=== PATIENT | male | born 1990 | race African-American/Black ===

== ENCOUNTER 2018-07-21 10:11 | Emergency (ER) | payer MEDICAID, OTHER ==
[~2018-07-21] VITALS: Ht 172.7 cm; Wt 97.7 kg
[2018-07-21] MEDS ORDERED: FLUORESCEIN SODIUM 1 MG STRIP ONE (11:21)
[2018-07-21] MEDS: PROPARACAINE HCL 0.5% 15 ML OPHTHALMIC SOLUTION OU ONE (11:22)
[2018-07-21 11:48] VITALS: BP 125/83
== END 2018-07-21 11:49 | disposition home or self-care (01) ==
LOC: EMS 10:13
DX: T15.12XA Foreign body in conjunctival sac, left eye, initial encounter (principal); F17.210 Nicotine dependence, cigarettes, uncomplicated; Y92.89 Other specified places as the place of occurrence of the external cause

== ENCOUNTER 2019-06-13 11:13 | Emergency (ER) | payer SELFPAY ==
[~2019-06-13] VITALS: Ht 172.7 cm; Wt 76.4 kg
[2019-06-13] MEDS ORDERED: IBUPROFEN 400 MG TABLET PO ONE (13:30)
[2019-06-13 14:09] VITALS: BP 125/70
== END 2019-06-13 14:26 | disposition home or self-care (01) ==
LOC: EMS 11:16
DX: M77.9 Enthesopathy, unspecified (principal); F17.210 Nicotine dependence, cigarettes, uncomplicated
CPT/HCPCS: 99406

== ENCOUNTER 2020-04-26 22:10 | Emergency (ER) | payer MEDICAID ==
[~2020-04-26] VITALS: Ht 175.3 cm; Wt 97.7 kg
[2020-04-26 23:30] VITALS: BP 133/75
== END 2020-04-27 00:03 | disposition home or self-care (01) ==
LOC: EMS 22:12
DX: S70.12XA Contusion of left thigh, initial encounter (principal); F17.210 Nicotine dependence, cigarettes, uncomplicated; W20.8XXA Other cause of strike by thrown, projected or falling object, initial encounter; Y93.89 Activity, other specified; Y92.89 Other specified places as the place of occurrence of the external cause; Y99.0 Civilian activity done for income or pay
CPT/HCPCS: Z7502

== ENCOUNTER 2024-07-20 09:51 | Emergency (ER) | payer MEDICAID ==
[~2024-07-20] VITALS: Ht 175.3 cm; Wt 95.5 kg
[2024-07-20 09:56] VITALS: BP 124/72; PULSE 67; RESP 16; TEMP 98.5; O2SAT 99
[2024-07-20] MEDS: ACETAMINOPHEN 500 MG TABLET PO ONE (10:32)
[2024-07-20] MEDS: IBUPROFEN 600 MG TABLET PO ONE (10:33)
[2024-07-20] MEDS ORDERED: IBUP-1554 PO (11:35)
[2024-07-20] MEDS ORDERED: HYDR-4062 PO (11:35)
== END 2024-07-20 11:50 | disposition home or self-care (01) ==
LOC: EMS 09:55
DX: S63.601A Unspecified sprain of right thumb, initial encounter (principal); S60.221A Contusion of right hand, initial encounter; F17.210 Nicotine dependence, cigarettes, uncomplicated; Z98.890 Other specified postprocedural states; X58.XXXA Exposure to other specified factors, initial encounter; Y93.89 Activity, other specified; Y92.89 Other specified places as the place of occurrence of the external cause; Y99.8 Other external cause status
CPT/HCPCS: 99283